=== PATIENT | male | born 1965 | race Caucasian/White ===

== ENCOUNTER 2018-08-08 11:32 | Emergency (ER) | payer MEDICAID ==
[2018-08-08] MEDS: DEXAMETHASONE 10 MG/ML 1 ML INJ IM (12:07)
== END 2018-08-08 12:52 | disposition home or self-care (01) ==
LOC: FTE 11:32
DX: R22.0 Localized swelling, mass and lump, head (principal); R21 Rash and other nonspecific skin eruption
CPT/HCPCS: 96372; 99284-25